=== PATIENT | male | born 1965 | race African-American/Black ===

== ENCOUNTER 2019-06-12 10:52 | Emergency (ER) | payer SELFPAY ==
--- NOTE | 2019-06-12 13:01 | EDM.PDOC ---
ED HPI GENERAL MEDICAL PROBLEM - General Chief Complaint: Respiratory Problem Stated Complaint: FLU SX Time Seen by Provider: 06/12/19 12:33 Source of Information: Reports: Patient History Limitations: Reports: No Limitations - History of Present Illness INITIAL COMMENTS - FREE TEXT/NARRATIVE: Patient is a 53-year-old male who presents with complaints of cough, congestion , nausea, fever, body aches, and sweats since Wednesday. He states that the worst of the symptoms were on Wednesday and he has been feeling a little bit better since then. He did not get a flu shot this year. He has no chronic health problems. Denies vomiting or diarrhea. 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 ED EXAM, GENERAL - Physical Exam Exam: See Below Exam Limited By: No Limitations General Appearance: Alert, WD/WN, No Apparent Distress Respiratory/Chest: No Respiratory Distress, Lungs Clear, Normal Breath Sounds, No Accessory Muscle Use, Chest Non-Tender Cardiovascular: Normal Peripheral Pulses, Regular Rate, Rhythm, No Edema, No Gallop, No JVD, No Murmur, No Rub Neurological: Alert, Oriented, CN II-XII Intact, Normal Cognition, Normal Gait, Normal Reflexes, No Motor/Sensory Deficits Psychiatric: Normal Affect, Normal Mood Skin Exam: Warm, Dry, Intact, Normal Color, No Rash Course - Vital Signs Last Recorded V/S: Last Vital Signs Temp 98.8 F 06/12/19 11:09 Pulse 93 06/12/19 11:09 Resp 18 06/12/19 11:09 BP 120/76 06/12/19 11:09 Pulse Ox 98 06/12/19 11:09 - Re-Assessments/Exams Free Text/Narrative Re-Assessment/Exam: 06/12/19 12:58 patient is positive for influenza B. He is outside the 48 hours of Tamiflu would not be of benefit I will write a prescription for Phenergan with codeine for cough. He declined a note off from work. He was educated that he cannot drive after taking this medication. Discharge instructions as noted. Departure - Departure Time of Disposition: 12:58 Disposition: Home, Self-Care 01 Condition: Fair Clinical Impression: Influenza - Discharge Information *PRESCRIPTION DRUG MONITORING PROGRAM REVIEWED*: No *COPY OF PRESCRIPTION DRUG MONITORING REPORT IN PATIENT DUSTY: No Prescriptions: Codeine/Promethazine [Phenergan with Codeine] 5 ml PO Q4HR PRN #90 ml PRN Reason: Cough Instructions: Influenza, Adult, [id number] Referrals: PCP,None [Primary Care Provider] - Additional Instructions: You were seen in the emergency department for cough, congestion, fever, aches, and nausea that started on Wednesday. You were positive for influenza B. This is a viral illness that generally resolves over 7-10 days. Treatment of this is to treat the symptoms. I recommend that you get adequate rest and drink plenty fluids. A prescription for Phenergan with codeine for cough has been provided to you. you may use this every 4 hours as prescribed for cough. Do not drive or operate heavy machinery after taking this medication as it can be sedating. If he should experience any worsening symptoms, please do not hesitate to return to the emergency department. Sepsis Event Note - Evaluation Sepsis Screening Result: No Definite Risk - Focused Exam Vital Signs: Vital Signs Temp Pulse Resp BP Pulse Ox 06/12/19 11:09 98.8 F 93 18 120/76 98 Date Exam was Performed: 06/12/19 Time Exam was Performed: 12:56
== END 2019-06-12 13:20 | disposition home or self-care (01) ==
LOC: JD.ED 10:52
DX: J10.1 Influenza due to other identified influenza virus with other respiratory manifestations (principal); I10 Essential (primary) hypertension; E11.9 Type 2 diabetes mellitus without complications; F17.210 Nicotine dependence, cigarettes, uncomplicated
CPT/HCPCS: 87804; 99282; 99283